=== PATIENT | female | born 1970 | race Caucasian/White ===

== ENCOUNTER 2017-01-17 16:57 | Emergency (ER) | payer BC ==
[2017-01-17] MEDS ORDERED: ALBUTEROL SULFATE/IPRATROPIUM 3 ML NEBU IH ONE ×2 (17:39→17:54)
--- NOTE | 2017-01-17 17:44 | ERNOTE ---
Dyspnea - Date Date of Service: 01/17/17 - General Presenting Symptoms: shortness of breath Time Seen by Provider: 01/17/17 17:30 Source: patient, RN/MD, RN notes reviewed Exam Limitations: no limitations - Immun/Allergies/Home Medications Immunizations: IMMUNIZATION HX Immunizations Up to Date Yes History of Influenza Vaccine Yes Allergies/Adverse Reactions: Allergies amoxicillin trihydrate [From Augmentin] Allergy (Verified 01/17/17 17:10) bee venom (honey bee) Allergy (Verified 01/17/17 17:10) Anaphylaxis potassium clavulanate [From Augmentin] Allergy (Verified 01/17/17 17:10) Home Medications: HOME MEDICATIONS predniSONE [Prednisone] 1 tab PO DAILY #7 tab 01/17/17 [Last Taken Unknown] - History of Present Illness Narrative: 46 y/o female sent to the ED from the walk in clinic for chest heaviness and difficulty breathing. She was diagnosed with sinusitis, ear infection and bronchitis 1 week ago. She was treated with a ZPack. Her ear and sinus congestion resolved. She has been experiencing chest tightness and dyspnea all day today. She has asthma and reports this is the same as her usual asthma exacerbations. She also has a clotting disorder and has had 32 DVT's. She has never had a PE. She reports that her INR was therapeutic when it was last checked about a month ago. Initiating event: Reports: upper resp illness Frequency of episodes: Reports: occassional episodes Associated Symptoms-Dyspnea: Reports: chest pain/discomfort, cough. Denies: fever/chills, sweating, palpitations, wheezing, leg/calf pain, ankle/leg swelling, dizziness, lightheadedness, anxiety, tingling of hands/face, muscle spasms Prior Treatment: Reports: recently seen, treated by physician, previous episodes. Denies: currently on antibiotics Review of Systems - Review of Systems Constitutional: Present: See HPI EYE: Present: no symptoms reported ENT: Present: See HPI Respiratory: Present: shortness of breath, cough. Absent: orthopnea, wheezing, stridor Cardiology: Present: chest pain. Absent: palpitations, syncope, edema, claudication Gastrointestinal/Abdominal: Absent: nausea, vomiting, abdominal pain Genitourinary: Present: no symptoms reported Musculoskeletal: Present: no symptoms reported Skin: Absent: rash, lesions, change in color Neurological: Absent: headache, dizziness/light-headedness Endocrine: Present: no symptoms reported Hematologic/Lymphatic: Present: easy bruising, easy bleeding Psych: Present: no symptoms reported - Patient's Past Medical History Patient History - Medical: Anemia, Other - Clotting disorder Patient History - Cardiac/Respiratory: Asthma Patient History - Cancer: No Hx of Cancer Patient History - Surgical Procedures: Cholecystectomy, , Gastric Bypass, Other LMP (Calendar): 01/16/17 - Social History Living Situations: home Smoking Status: Never smoker Alcohol Use: rarely Drug Use: none - Immunizations Immunizations Up to Date: Yes History of Influenza Vaccine: Yes Physical Exam - Physical Exam General Appearance: Present: wd/wn, alert, mild distress Ears, Nose, Throat: Present: normal ENT inspection, normal pharynx. Absent: nasal congestion, sinus pain/drainage Neck: Present: normal inspection, nontender, supple Respiratory: Present: no respiratory distress, lungs clear, accessory muscle use - mild, expiration (prolonged) Cardiovascular/Chest: Present: no murmur, normal peripheral pulses, bradycardia Extremity Exam: Present: normal inspection, no edema Neurological Exam: Present: alert, oriented, normal mood/affect, no motor/ sensory deficits Skin Exam: Present: normal color, warm/dry ED Progress - Results and Orders Patient's Lab Results:: I have reviewed the patient's lab results. - Vital Signs Patient's Vital Signs:: I have reviewed the patient's vital signs. Vital Signs: Vital Signs 01/17/17 17:06 Temperature 37.1 C Pulse Rate 62 Respiratory 19 Rate Blood Pressure 120/77 O2 Sat by Pulse 100 Oximetry - EKG EKG: other - Sinus bradycardia, 50 - X-Ray X-Ray #1 X-Ray: chest Interpretation: Interp. by me X-ray Comments: No acute cardiopulmonary process noted - Progress/Reassessment Chief Complaint: Dyspnea Progress:: Improved Progress Note-Subjective: 01/17/17 18:45 Verbalizes feeling better after neb treatment, will start on prednisone here, has inhaler and meds for her nebulizer at home Departure Clinical Impression: Asthma with acute exacerbation Qualifiers: Asthma severity: unspecified severity Qualified Code(s): J45.901 - Unspecified asthma with (acute) exacerbation - Departure Disposition: Home Follow Up Needed Condition: Stable Instructions: Asthma, Adult, Onpe-tc-Deyx Prescriptions: predniSONE [Prednisone] 1 tab PO DAILY #7 tab
[2017-01-17 18:03] LABS: Hematocrit 41.1 % (37.0-47.0); Mean Cell Volume 89.9 fl (78-100); Mean Corpuscular Hemoglobin 28.4 pg (27-31); Mean Corpuscular Hgb Conc 31.6 g/dl (32-36); Mean Platelet Volume 9.6 fl (6.0-9.5); Neutrophil # 4.7 K/mm3 (1.3-6.0); Neutrophil % 62.5 % (42-75.0); Platelet Count 274 K/mm3 (150-450); Red Blood Count 4.57 M/mm3 (4.2-5.4); Red Cell Distribution Width 13.4 % (11.5-14.0); White Blood Count 7.6 K/mm3 (4.0-10.5)
[2017-01-17 18:13] LABS: Prothrombin Time (Patient) 35.8 Seconds (9.4-11.4)
[2017-01-17 18:16] LABS: INR 3.44 INR (0.90-1.10)
[2017-01-17 18:21] LABS: ALT 18 U/L (19-67); AST 14 U/L (0-48); Albumin * 3.8 gm/dl (3.4-5.0); Alkaline Phosphatase * 112 U/L (50-170); Anion Gap 12.4 mmol/L (6.8-13.8); BUN/Creatinine Ratio 16.2 (9.0-21.6); Bilirubin, Total 0.4 mg/dL (0.0-1.1); Blood Urea Nitrogen 12 mg/dL (3-23); Ca. Corrected For Albumin 8.7 mg/dL (8.4-10.2); Calcium * 8.9 mg/dL (7.9-10.9); Carbon Dioxide 27.3 mmol/L (24-32.6); Chloride 103 mmol/L (97-106); Glucose * 91 mg/dL (70-110); Potassium 3.7 mmol/L (3.4-4.6); Sodium 139 mmol/L (132-142); Troponin I Less than 0.017 ng/ml (0.00-0.10)
[2017-01-17] MEDS ORDERED: predniSONE 20 MG TABLET PO ONE (18:48)
[2017-01-17] MEDS ORDERED: predniSONE 20 MG TABLET ONE (18:57)
[2017-01-17 19:19] VITALS: BP 109/67
--- OUTSIDE RECORDS SUMMARY | 2017-01-17 21:36 | XMS REPORT | Continuity of Care Document ---
:1970 Author Organization [employer] [place] [address] Care Team Providers Name Role Phone JanetReny lugo Primary Care Provider [phone] Source Comments This disclosure is being made pursuant to the Cloudy Days program and maynot contain all information available regarding this patient.[employer] Active Allergies and Adverse Reactions Allergen Noted Date Severity Reactions Comments Augmentin 08/18/2016 Medium Nausea And Vomiting Current Medications Be aware that medications may not be up to date as of this document. Alwaysverify current medications with the patient. Prescription Sig. Disp. Refills Start Date End Date Status vitamin D, Ergocalciferol, Take 1 capsule by 0 05/03/2016 Active 57899 UNITS capsule mouth once a week. lansoprazole (PREVACID) 30 Take 1 capsule by 0 06/27/2016 Active MG capsule mouth 2 (two) times daily. omeprazole (PRILOSEC) 40 Take 1 capsule by 2 06/24/2016 Active MG capsule mouth daily. sucralfate (CARAFATE) 1 G Take 1 tablet by 2 06/24/2016 Active tablet mouth 4 (four) times daily. PEPTO-BISMOL 262 MG TABS Take 2 tablets by 0 06/27/2016 Active tablet mouth 2 (two) times daily. For 2 weeks warfarin (COUMADIN) 4 MG Take 4 mg by mouth Active tablet daily. montelukast (SINGULAIR) 10 Take 10 mg by Active MG tablet mouth nightly. cholecalciferol (VITAMIN Take 50,000 Units Active D3) 94595 UNITS capsule by mouth once a week. propranolol (INDERAL) 40 Take 40 mg by Active MG tablet mouth 2 (two) times daily. Active Problems No known active problems Social History Tobacco Use Types Packs/Day Years Used Date Never Smoker Smokeless Tobacco: Never Used Last Filed Vital Signs Vital Sign Reading Time Taken Blood Pressure 128/80 08/18/2016 3:16 PM CDT Pulse 100 08/18/2016 3:16 PM CDT Temperature 36.4 C (97.6 F) 08/18/2016 3:16 PM CDT Respiratory Rate 18 08/18/2016 3:16 PM CDT Height 1.702 m (5' 7") 08/18/2016 3:16 PM CDT Weight 99.338 kg (219 lb) 08/18/2016 3:16 PM CDT Body Mass Index 34.29 08/18/2016 3:16 PM CDT Oxygen Saturation - - Plan of Care Date Type Specialty Providers Description 08/24/2017 Appointment Urology Michael Smith PAFredyC [facility] [address] [address] [phone] (Fax) Health Maintenance Due Date Last Done Comments Tetanus/Pertussis (1 - Tdap) 1988 Pap Smear 1990 Influenza Immunization (#1) 2016 Results from Last 3 Months Not on file
--- OUTSIDE RECORDS SUMMARY | 2017-01-17 21:38 | XMS REPORT | Continuity of Care Document ---
:1970 Author Organization [facility] ([facility]) Address [address] [place] [address] Phone [phone] Care Team Providers Name Role Phone ToyrimaJg Primary Care Provider [phone] Source Comments This disclosure is being made pursuant to the Care Everywhere program, applicable federal and state laws, and may not contain all informaitonavailable regarding this patient.[facility] ([facility]) Active Allergies and Adverse Reactions Allergen Noted Date Severity Reactions Comments Amoxicillin Urticaria (Hives),Nausea & Vomiting,Stomach Pain Potassium Clavulanate Urticaria (Hives),Nausea & Vomiting,Stomach Pain Current Medications Not on file Active Problems Not on file Social History Tobacco Use Types Packs/Day Years Used Date Never Assessed Last Filed Vital Signs Vital Sign Reading Time Taken Blood Pressure - - Pulse - - Temperature - - Respiratory Rate - - Height 1.702 m (5' 7") 12/27/2002 9:18 PM [employer]ICIAN Weight 125.397 kg (276 lb 7.2 oz) 08/19/2003 1:57 PM CDT Body Mass Index 43.29 08/19/2003 1:57 PM CDT Oxygen Saturation - - Plan of Care Health Maintenance Due Date Last Done Comments Hepatitis B Vaccine (1 of 3 - Primary Series) 1970 Tdap Vaccine 1980 Lipid Disorder Screening 1987 MMR Vaccine 1987 Td Vaccine 1987 Cervical Cancer Screening 1999 Mammogram 2009 Influenza Vaccine: Seasonal (#1) 05/30/2016 Results from Last 3 Months Not on file
== END 2017-01-17 19:10 | disposition home or self-care (01) ==
LOC: ER 16:57
DX: J45.901 Unspecified asthma with (acute) exacerbation (principal)

== ENCOUNTER 2017-07-04 15:48 | Emergency (ER) | payer BC, OTHER ==
[2017-07-04] MEDS ORDERED: KETOROLAC TROMETHAMINE 60 MG/2 ML VIAL IM ONE ×2 (16:32→16:36)
--- NOTE | 2017-07-04 16:34 | ERNOTE ---
Lower Extremity HPI - Narrative Date of Service: 07/04/17 - General Lower Extremities Pain: ankle: right Time Seen by Provider: 07/04/17 16:23 Source: patient Exam Limitations: no limitations - Immun/Allergies/Home Medications Immunizations: IMMUNIZATION HX Immunizations Up to Date Yes History of Influenza Vaccine Yes Allergies/Adverse Reactions: Allergies Allergy/AdvReac Type Severity Reaction Status Date / Time amoxicillin trihydrate Allergy Verified 07/04/17 16:10 [From Augmentin] potassium clavulanate Allergy Verified 07/04/17 16:10 [From Augmentin] venom-honey bee Allergy Anaphylaxis Verified 07/04/17 16:10 [bee venom (honey bee)] Home Medications: HOME MEDICATIONS Montelukast Sodium [Singulair] 10 mg PO DAILY 07/04/17 [Last Taken Unknown] Propranolol HCl 40 mg PO BID 07/04/17 [Last Taken Unknown] Warfarin Sodium [Coumadin] 4 mg PO DAILY 07/04/17 [Last Taken Unknown] - History of Present Illness Narrative: Pt. comes in with c/o R ankle pain after she rolled her ankle 24 hours after stepping on a brick. Pt. denies any SOB, CP, NVD, fever, recent illness, numbness otr tigling. Pt. went to her chiropractor and states taht the chiropractor stated taht the tuning fork test was positive. Pt. denies any alleviating factors or prehospital treatment but states taht movement, palpation , or ambulation exacerbates the pain. Review of Systems - Review of Systems Constitutional: Present: no symptoms reported. Absent: recent illness, fever, chills, weakness, fatigue, malaise EYE: Present: no symptoms reported ENT: Present: no symptoms reported Respiratory: Present: no symptoms reported. Absent: shortness of breath, cough , wheezing Cardiology: Present: no symptoms reported. Absent: chest pain, palpitations, edema Musculoskeletal: Present: joint pain - R ankle, joint swelling - R ankle All Other Systems: All systems neg except as marked - Patient's Past Medical History Patient History - Medical: Anemia, Other - clotting disorder Patient History - Cardiac/Respiratory: Asthma, Deep Vein Thrombosis - multiple Patient History - Cancer: No Hx of Cancer Patient History - Surgical Procedures: Cholecystectomy, , Gastric Bypass, Other LMP (Calendar): 01/16/17 - Social History Living Situations: home Alcohol Use: rarely Drug Use: none - Immunizations Immunizations Up to Date: Yes History of Influenza Vaccine: Yes Physical Exam - Physical Exam General Appearance: Present: wd/wn, alert, no apparent distress Head Exam: Present: normal inspection, no evidence of injury Eye Exam: Normal inspection: bilateral, PERRL: bilateral, EOMI: bilateral Respiratory: Present: no respiratory distress, normal breath sounds, no accessory muscle use, chest nontender, lungs clear Cardiovascular/Chest: Present: regular rate, rhythm, no murmur, normal peripheral pulses Extremity Exam: Present: decreased range of motion, bony tenderness - distal fibula, joint swelling - R ankle Neurological Exam: Present: alert, oriented, normal mood/affect, no motor/ sensory deficits Skin Exam: Present: normal color, warm/dry. Absent: pallor, skin rash ED Progress - Date and Time Seen: Date and Time: 07/04/17 16:58 As pt. has equivocal xray results but most likely sprain will place in air cast and have non weight bearing and have follow up with ortho at her convenience. - Vital Signs Patient's Vital Signs:: I have reviewed the patient's vital signs. Vital Signs: Vital Signs 07/04/17 16:08 Temperature 36.9 C Pulse Rate 60 Respiratory 12 Rate Blood Pressure 131/70 O2 Sat by Pulse 99 Oximetry - X-Ray X-Ray #1 X-Ray: ankle Interpretation: Reviewed by me X-ray Comments: no acute fracture and no tenderness at forth metatarsal to indicate injury with discrete lucency on fourth metatarsal this could represent a fracture but it is most likely sprain. - Progress/Reassessment Chief Complaint: Ankle Injury/ Pain Departure Clinical Impression: High ankle sprain of right lower extremity Qualifiers: Encounter type: initial encounter Qualified Code(s): S93.431A - Sprain of tibiofibular ligament of right ankle, initial encounter - Departure Disposition: Home self-care Condition: Good Instructions: Ankle Sprain, [id number] Additional Instructions: Please follow up with orthopedics as your first convenience and get appointment. Referrals: Roscoe Gonzales MD [Primary Care Provider] -
[2017-07-04 17:21] VITALS: BP 129/68
== END 2017-07-04 17:10 | disposition home or self-care (01) ==
LOC: ER 15:48
PROC: 2W3QX1Z Immobilization of Right Lower Leg using Splint (ICD-10-PCS; principal; 2017-07-04)
DX: S93.431A Sprain of tibiofibular ligament of right ankle, initial encounter (principal); Z86.718 Personal history of other venous thrombosis and embolism; Z79.01 Long term (current) use of anticoagulants; X50.1XXA Overexertion from prolonged static or awkward postures, initial encounter

== ENCOUNTER 2017-11-07 07:43 | Day surgery (SDC) | payer OTHER ==
[~2017-11-07 07:43] MED LIST: ACETAMINOPHEN 500 MG TABLET PO PRN; HYDROmorphone HCL 2 MG/ML VIAL IV PRN; MAG HYDROX/ALUMINUM HYD/SIMETH 30 ML UDC PO PRN; MAGNESIUM HYDROXIDE 30 ML UDC PO PRN; ONDANSETRON HCL/PF 2 MG/ML VIAL IV PRN; PROMETHAZINE HCL 25 MG in DEXTROSE 5 % IN WATER 50 ML IV PRN; RINGER'S SOLUTION,LACTATED 1,000 ML IV PRN; ZOLPIDEM TARTRATE 5 MG TABLET PO PRN; ceFAZolin SODIUM 1 GM VIAL IV PRN; diphenhydrAMINE HCL 50 MG/ML VIAL IV PRN; oxyCODONE HCL/ACETAMINOPHEN 1 TAB TABLET PO PRN
[2017-11-07] MEDS ORDERED: RINGER'S SOLUTION,LACTATED 1,000 ML IV ONE ×3 (08:18→13:00)
[2017-11-07] MEDS ORDERED: BUPIVACAINE HCL/EPINEPHRINE 50 ML VIAL IJ ONE ×2 (09:50)
--- NOTE | 2017-11-07 11:18 | OR ---
Operative Report - Dictated Report Narrative: Date: 11/07/2017 Surgeon: Ortega Stevens M.D. Sketcher: Artur Yoon PA-C Anesthesia: General plus local anesthetic Preoperative diagnosis: Right peroneal tenosynovitis, peroneus longus tear Postoperative diagnosis: Right peroneal tenosynovitis, chronic peroneus longus rupture Procedure: 1. Peroneus longus tenodesis to the peroneus brevis 2. Debridement of the peroneal tendons 3. Excision of calcaneal bone spur Estimated blood loss: None Tourniquet time: 46 Minutes at 325 millimeters mercury Retained implants: None Specimens: None Complications: None Indications: Gregory is a 47-year-old female who fell from standing height approximately 4 months ago resulting in a injury to the right ankle. They were seen in the emergency department with images obtained revealing the above injury. They were seen in clinic where her exam was consistent with ankle sprain. She was managed conservatively with ice, anti-inflammatories and physical therapy. Progress was slow and she began to develop increasing pain secondary to her peroneal tendons. An MRI was obtained which demonstrated significant peroneal tenosynovitis and what appeared to be partial tearing of the peroneus longus tendon. This was initially managed conservatively with a prolonged period of immobilization followed by continued physical therapy which she failed. At this point I discussed the option of peroneal tendon debridement with possible repair. Risks were reviewed including , blood clots, nerve/tendon/blood vessel injury, persistent pain, need for additional procedures, wound complications, DVT/PE, and risks with anesthesia. After discussion she wished to proceed with surgery and presents for the procedure today. Procedure: After a timeout, anesthetic consisting of 2 g of Ancef was administered. General anesthesia was administered by the nurse broadband installer without complication in the supine position. The patient was then placed in a lazy left lateral decubitus position with a beanbag and the operative leg on a bone foam ramp. All bony prominences were well-padded. A well-padded tourniquet was applied to the operative thigh. The operative extremity was then prepped and draped in a standard sterile fashion. Extremity was exsanguinated and tourniquet was inflated. Attention was turned to the lateral aspect of the ankle and the bony landmarks as well as the peroneal tendons were palpated and a curvilinear incision was marked out along the posterior inferior border of the fibula extending down to the base of the fifth metatarsal approximately 12 centimeters meters in length. This was then anesthetized with 0.25% Marcaine with epinephrine. Incision was made with a sharp knife and subcutaneous dissection was carried out using a combination of electrocautery and tenotomy scissors. The sural nerve was identified along with its distal branches and was protected throughout the remainder of the case. Dissection was carried down to the level of the peroneal retinaculum and peroneal tendon sheath. This was incised along its entire length taking care to release the peroneal retinaculum posteriorly giving us a good cuff of tissue for later repair. A significant amount of inflamed tenosynovium was noted within the peroneal tendon sheath which was sharply debrided. The peroneus brevis tendon was identified and carefully inspected and it demonstrated no tearing. Upon initial evaluation the peroneus longus was not visible within the tendon sheath. Further dissection proximally and distally revealed a chronic complete rupture of the peroneus longus tendon with the distal portion visible just at the entrance to the cuboid tunnel. The proximal portion had retracted to the proximal border of the peroneal retinaculum. There was significant tendinopathy of the proximal peroneus longus tendon stump. No os peroneum was noted. Given the chronic nature of the tear there was no way this was going to be able to be repaired primarily. At this point we chose to proceed with a tenodesis procedure of the proximal peroneus longus tendon stump to the peroneus brevis. The proximal peroneus longus tendon stump was sharply debrided of scar tissue and then tenodesed to the peroneus brevis tendon using 0 Ethibond suture. There was a significant lateral calcaneal bony projection that was noted on the MRI and this was identified intraoperatively and a rongeur was used to remove the excess bone and create a smooth surface along the lateral calcaneus adjacent to the peroneus brevis tendon. At this point we felt we had addressed all pathology and the wound was copiously irrigated with normal saline. The tourniquet was released and hemostasis was obtained with a combination of pressure and electrocautery. Once adequate hemostasis was achieved we repaired the peroneal tendon sheath and peroneal retinaculum with 2- 0 Vicryl suture. Subcutaneous tissue was then closed with interrupted 3-0 Vicryl and skin was closed with interrupted 4-0 nylon. Xeroform, 4 x 4's, soft roll, and a well-padded AO splint was applied. Patient was then awoken and transferred to postanesthesia care in stable condition. All sponge, sharp, and instrument counts were correct prior to closing the wounds.
[2017-11-07] MEDS ORDERED: PROMETHAZINE HCL 12.5 MG in DEXTROSE 5 % IN WATER 50 ML IV ONE ×2 (13:00)
[2017-11-07 14:43] VITALS: BP 114/60
[2017-11-07] MEDS ORDERED: SENNOSIDES/DOCUSATE SODIUM 1 TAB TABLET PO SCH (21:00)
== END 2017-11-07 07:44 | disposition home or self-care (01) ==
LOC: AMB 07:43
PROVIDERS: ATTEND Orthopaedic Surgery
PROC: 0LSS0ZZ Reposition Right Ankle Tendon, Open Approach (ICD-10-PCS; principal; 2017-11-07)
PROC: 0QBL0ZZ Excision of Right Tarsal, Open Approach (ICD-10-PCS; 2017-11-07)
DX: M76.71 Peroneal tendinitis, right leg (principal); S86.312A Strain of muscle(s) and tendon(s) of peroneal muscle group at lower leg level, left leg, initial encounter; M77.31 Calcaneal spur, right foot; D64.9 Anemia, unspecified; J45.909 Unspecified asthma, uncomplicated; D68.51 Activated protein C resistance; Z68.37 Body mass index [BMI] 37.0-37.9, adult